=== PATIENT | female | born 1950 | race Caucasian/White ===

== ENCOUNTER → 2017-06-05 | Outpatient (CLI) | payer OTHER | LOC: FIMAGING 11:20 | PROVIDERS: ATTEND Internal Medicine | DX: Z12.31 Encounter for screening mammogram for malignant neoplasm of breast (principal) | CPT/HCPCS: G0202 ==

== ENCOUNTER → 2017-10-08 | Outpatient (CLI) | payer OTHER | LOC: FIMAGING 14:16 | PROVIDERS: ATTEND Physician Assistant Medical | DX: Z13.820 Encounter for screening for osteoporosis (principal); M85.89 Other specified disorders of bone density and structure, multiple sites; Z78.0 Asymptomatic menopausal state ==

== ENCOUNTER → 2018-01-09 | Outpatient (CLI) | payer OTHER | LOC: BMCIMAGING 14:47 | PROVIDERS: ATTEND Family Medicine | DX: J98.4 Other disorders of lung (principal); J98.11 Atelectasis ==

== ENCOUNTER → 2018-02-24 | Outpatient (CLI) | payer OTHER | LOC: BMCIMAGING 18:27 | PROVIDERS: ATTEND Family Medicine | DX: S62.643A Nondisplaced fracture of proximal phalanx of left middle finger, initial encounter for closed fracture (principal) ==

== ENCOUNTER 2018-03-09 08:07 | Day surgery (SDC) | payer OTHER ==
[2018-03-09] MEDS ORDERED: ceFAZolin 2 GM/DEXTROSE 100 ML IV ONE (08:19)
[2018-03-09] MEDS ORDERED: LR 1,000 ML IV ONE (08:21)
[2018-03-09] MEDS ORDERED: LIDOCAINE 1% 2 ML INJ ID PRN (08:21)
[2018-03-09] MEDS ORDERED: BUPIVACAINE 0.25% 30 ML SDV ONE ×2 (08:36→09:20)
[2018-03-09] MEDS ORDERED: BUPIVACAINE/EPI 0.5% 30 ML SDV ONE (08:36)
--- NOTE | 2018-03-09 08:37 | PDHPUP ---
History & Physical Update H&P update statement: This history and physical update is based on an assessment of the patient which was completed after admission or registration (within 24 hours), but prior to the surgery/procedure. H&P update: H&P reviewed & patient examined, no change in patient's condition since H&P completed
[2018-03-09] MEDS ORDERED: LIDO/EPI 1% **Not for Epidural 20 ML MDV NB ONE (08:47)
[2018-03-09] MEDS ORDERED: SODIUM BICARBONATE 50 MEQ in 1/2 NS 1,000 ML MISC SCH (09:00)
[2018-03-09] MEDS ORDERED: EPINEPHrine 1 MG/ML INJ ONE ×2 (09:20→09:30)
--- NOTE | 2018-03-09 09:22 | PDANEPAE ---
ANE History of Present Illness orif finger ANE Past Medical History - Cardiovascular History Hx Hypertension: No Hx Arrhythmias: No Hx Chest Pain: No Hx Coronary Artery / Peripheral Vascular Disease: No Hx CHF / Valvular Disease: No Hx Palpitations: No - Pulmonary History Hx COPD: No Hx Asthma/Reactive Airway Disease: No Hx Recent Upper Respiratory Infection: No Hx Oxygen in Use at Home: No Hx Sleep Apnea: No Sleep Apnea Screening Result - Last Documented: Negative - Neurologic History Hx Cerebrovascular Accident: No Hx Seizures: No Hx Dementia: No - Endocrine History Hx Diabetes: No - Renal History Hx Renal Disorders: No - Liver History Hx Hepatic Disorders: No - Neurological & Psychiatric Hx Hx Neurological and Psychiatric Disorders: No - Cancer History Hx Cancer: No - Congenital Disorder History Hx Congenital Disorders: No - GI History Hx Gastrointestinal Disorders: Yes Gastrointestinal History Comment: REFLUX ? ulcers - Other Health History Other Health History: none - Chronic Pain History Chronic Pain: Yes (right knee and toes) - Surgical History Prior Surgeries: 2/back surgeries. R TKA x2. several bilateral knee sx's. L shoulder scope ANE Review of Systems Review of Systems: - Exercise capacity METS (RN): 4 METS - Systems Muscolosketal: Reports: joint pain ANE Patient History - Allergies Allergies/Adverse Reactions: No Known Allergies Allergy (Verified 03/08/18 17:26) - Home Medications Home Medications: Ascorbic Acid [Vitamin C 500 mg (OTC)] 11/26/11 [Last Taken 03/08/18] Calcium Carbonate [Oyster Shell Calcium 500 mg (OTC)] 11/26/11 [Last Taken 05/18] Probiotics 11/26/11 [Last Taken 03/08/18] Valerian Tab 1600mg 11/26/11 [Last Taken 03/07/18] Apple Cider Vinegar 03/09/18 [Last Taken 03/08/18] Herbals/Supplements -Info Only 03/09/18 [Last Taken 03/08/18] Vitamin B Complex 03/09/18 [Last Taken 03/08/18] - NPO status NPO Status: no food or drink >8 hours NPO Since - Liquids (Date): 03/08/18 NPO Since - Liquids (Time): 22:00 NPO Since - Solids (Date): 03/08/18 NPO Since - Solids (Time): 21:00 - Anes Hx Anes Hx: post operative nausea - Smoking Hx Smoking Status: Former smoker - Alcohol Use Alcohol Use: Occasionally - Family Anes Hx Family Anes Hx: none Family Hx Anesthesia Complications: none ANE Labs/Vital Signs - Vital Signs Blood Pressure: 119/70 Heart Rate: 68 Respiratory Rate: 19 O2 Sat (%): 94 Height: 162.56 cm Weight: 68.039 kg ANE Physical Exam - Airway Neck exam: FROM Mallampati Score: Class 2 Mouth exam: normal dental/mouth exam - Pulmonary Pulmonary: no respiratory distress, clear to auscultation - Cardiovascular Cardiovascular: regular rate and rhythym, no murmur, rub, or gallop - ASA Status ASA Status: II ANE Anesthesia Plan Anesthesia Plan: GA w LMA, GA with mask
[2018-03-09] MEDS ORDERED: MIDAZOLAM 2 MG/2 ML VIAL IVP ONE (09:24)
[2018-03-09] MEDS ORDERED: SODIUM BICARBONATE 10 MEQ/10 ML SYR IVP ONE (09:30)
[2018-03-09] MEDS ORDERED: LIDOCAINE 2% 5 ML SDV ONE ×4 (09:30)
[2018-03-09] MEDS ORDERED: PROPOFOL/EMULSION 500 MG/50 ML BOTTLE IV ONE ×2 (09:31→10:09)
[2018-03-09] MEDS ORDERED: fentaNYL 100 MCG/2 ML INJ IVP PRN (12:05)
[2018-03-09] MEDS ORDERED: oxyCODONE IR 5 MG TAB PO PRN (12:05)
[2018-03-09] MEDS ORDERED: NALOXONE HCL 0.4 MG/ML INJ IVP PRN (12:05)
[2018-03-09] MEDS ORDERED: ACETAMINOPHEN 500 MG TAB PO PRN (12:05)
[2018-03-09] MEDS ORDERED: ONDANSETRON 4 MG/2 ML VIAL IVP PRN (12:05)
[2018-03-09] MEDS ORDERED: HYDROCODONE/APAP 5/325 TAB PO PRN (12:05)
[2018-03-09] MEDS ORDERED: PROMETHAZINE HCL 25 MG/ML INJ IVP PRN (12:05)
--- NOTE | 2018-03-09 12:07 | POSTANESTH ---
Post Anesthetic Evaluation Cardiovascular Status: Normal, Stable, Similar to Pre-Op Cond Respiratory Status: Normal, Stable, Similar to Pre-op Cond. Level of Consciousness/Mental Status: Can Participate in Eval, Alert and Oriented Pain Control: Adequate, Prn Tx Ordered Nausea/Vomiting Control: Adequate, Prn Tx Ordered Complications Possibly Related to Anesthesia: None Noted
[2018-03-09 12:23] VITALS: BP 123/69
--- NOTE | 2018-03-09 15:11 | GOP ---
[f rep st] OPERATIVE REPORT DATE OF OPERATION: 03/09/2018 SURGEON: Eddie Brooks MD ANESTHESIA: Local and MAC. Local was performed by me using 1% lidocaine with epinephrine. PREOPERATIVE DIAGNOSIS: Unstable left long finger proximal phalanx fracture. POSTOPERATIVE DIAGNOSIS: Unstable left long finger proximal phalanx fracture. PROCEDURE PERFORMED: Closed reduction and percutaneous pinning of the long finger proximal phalanx. FINDINGS: ESTIMATED BLOOD LOSS: 5 cc. INDICATIONS: This patient is a 67-year-old female who was injured when she was protecting her own dog from another dog. Her finger was struck by a hiking pole. She was seen initially at [facility]gent [facility]. X-rays were taken. She was placed in a splint and then saw me in the office. I reviewed the x-rays and her finger clinically. She had evident clinical angulation and malrotation resulting in scissoring. I discussed with the patient that closed treatment with taping is possible; however, her deformity would persist. I discussed with her risks and benefits of surgery. Risks include pain, infection, damage to surrounding structures, numbness, stiffness, delayed union, nonunion, need for further surgery. She understood the risks and wished to proceed. DESCRIPTION OF PROCEDURE: The patient was seen in the preoperative holding area. She was given an opportunity to ask any more questions. All questions answered. Consent was confirmed. Surgical site was marked. Administered local in the preoperative area and then transferred to the operative suite. Great care was taken to make sure all bony prominences were padded. Time-out was called, including surgical and anesthesia teams confirming the surgical site and procedure to be performed. Sedation was given by the anesthesia team. 2 g of Ancef were given prior to incision. The left upper extremity was prepped and draped in the usual sterile fashion. Performed fluoroscopic examination of the finger prior. Again, there was significant angulation on the AP view and more displacement on the lateral view than her initial images. I placed a .035 K-wire to stabilize the butterfly fragment. I then placed reduction clamp around the head of the proximal phalanx to provide traction. Initially tried to place some 35 K-wires to stabilize the distal shaft to the proximal shaft piece; however, this fracture was really quite unstable and it did not hold stable with the K-wires in place, so I removed these and then, I placed two 45 K-wires in crossed fashion and this reduced and stabilized the fracture quite nicely. Took final x-rays. Wires were bent and cut short. On the AP view I moved the finger laterally with live fluoroscopy and it appeared stable, and on the lateral view I flexed and extented the PIP and MPJ and it appeared stable. Clinically did not appear angulated. There did not appear to be malrotation at this point. A sterile dressing was applied. Finger was wrapped in a sterile dressing and dorsal splint applied. Tolerated the procedure well, was then taken to the PACU in stable condition. IMPLANTS USED: K-wires. POSTOPERATIVE CONDITION: Stable. POSTOPERATIVE PLAN: Patient is follow up with me in a week. Will plan on removing the pins around 4 weeks. /[id number]/MODL MTDD
== END 2018-03-09 13:54 | disposition home or self-care (01) ==
LOC: FSGY 08:07
PROVIDERS: ATTEND Orthopaedic Surgery Hand Surgery
PROC: 0PSV34Z Reposition Left Finger Phalanx with Internal Fixation Device, Percutaneous Approach (ICD-10-PCS; principal; 2018-03-09 09:30)
DX: S62.643A Nondisplaced fracture of proximal phalanx of left middle finger, initial encounter for closed fracture (principal); W22.09XA Striking against other stationary object, initial encounter; Y93.K9 Activity, other involving animal care; Y99.8 Other external cause status; Z87.891 Personal history of nicotine dependence; Z96.651 Presence of right artificial knee joint
CPT/HCPCS: C1713; J0171; J0690; J2250; J2704

== ENCOUNTER → 2018-04-20 | Outpatient (CLI) | payer OTHER | LOC: BMCIMAGING 14:04 | PROVIDERS: ATTEND Orthopaedic Surgery Hand Surgery | DX: S62.613D Displaced fracture of proximal phalanx of left middle finger, subsequent encounter for fracture with routine healing (principal) ==